=== PATIENT | female | born 1980 | race Caucasian/White ===

== ENCOUNTER 2019-06-23 13:59 | Emergency (ER) | payer MEDICAID, SELFPAY ==
[2019-06-23 14:00] VITALS: BP 123/88; PULSE 123; RESP 18; TEMP 36.9; O2SAT 96; BMI 37.4
--- NOTE | 2019-06-23 14:34 | ED.VIS.GEN ---
History of Present Illness <Akshat Montanez - Last Filed: 06/23/19 16:22> Onset: Weeks Narrative: Patient presents to the ED with right lower extremity pain for the last 2 weeks. She was seen at urgent care and referred to the ED. She denies any injury. She has been taking Aleve intermittently for pain. She has been ambulating with the assistance of a cane due to the pain. <BelenlucaShannan - Last Filed: 06/23/19 17:11> Chief Complaint: Lower Extremity Injury Past Medical History <Akshat Montanez - Last Filed: 06/23/19 16:22> Surgical History: - - Eye surgery Smoking Status: Never smoker - Family History Maternal Family History: Reports: No pertinent history <HuseyinShannan - Last Filed: 06/23/19 17:11> - Allergies and Home Meds Allergies/Adverse Reactions: Allergies No Known Allergies Allergy (Verified 06/23/19 14:00) Primary Care Physician: Emil Chaparro DO [Primary Care Provider] - Physical Exam Vital Signs/Narrative: Vital Signs Temp Pulse Resp BP Pulse Ox 06/23/19 14:00 98.4 F 123 H 18 123/88 H 96 <Akshat Montanez - Last Filed: 06/23/19 16:22> Vital Signs/Narrative: Vital Signs Temp Pulse Resp BP Pulse Ox 06/23/19 14:00 98.4 F 123 H 18 123/88 H 96 <Shannan Fontanez - Last Filed: 06/23/19 17:11> Diagnostic/Tx/Re-eval - Medical Decision Making Evaluate this patient with our physician sales service assistant. Atraumatic right lower leg and calf pain for 2 weeks. She denies any type of injury or trauma. Young female no acute distress. Vital signs stable afebrile. Right lower leg is unremarkable. She has full flexion-extension of her right hip, right knee, right ankle. Right foot neurovascularly intact. Normal DP pulse. Positive dorsi and plantar flexion. Calf is nontender without edema or cords. There is no redness or warmth. There is no swelling in the right lower extremity compared to the left. X-ray of the right knee and right lower leg were both unremarkable read by ourselves and also the radiologist. Impression: Acute right lower extremity atraumatic pain uncertain etiology <Akshat Montanez - Last Filed: 06/23/19 16:22> - Medical Decision Making Patient presents to the ED with atraumatic right lower extremity pain that is been ongoing for the last 2 weeks. She has no DVT risk factors. X-ray of the right knee and tib-fib are negative for acute findings. D-dimer is negative. Theresa with the patient that at this time it is unclear what is the etiology of her pain. She was advised to continue [id number] analgesics as well as rice therapy. She was advised to follow-up with PCP if symptoms persist or worsen. She was educated on signs/symptoms to return to the ED. She is provided discharge instructions. She is agreeable to plan. Impression: Acute right lower extremity atraumatic pain, unclear etiology Disposition: Home stable <Shannan Fontanez - Last Filed: 06/23/19 17:11> ED Disposition <Akshat Montanez - Last Filed: 06/23/19 16:22> <Shannan Fontanez - Last Filed: 06/23/19 17:11> - Plan for ED Patient: Disposition: Home or Assisted Living Diagnosis: Right leg pain Instructions: CONTUSION, Lower Extremity Referrals: Emil Chaparro DO [Primary Care Provider] -
--- NOTE | 2019-06-23 14:52 | RAD_ITS ---
STUDY: X-RAY - RIGHT TIBIA AND FIBULA REASON FOR EXAM: Female, 39 years old. Right lower leg pain TECHNIQUE: 2 view(s) of the tibia and fibula were obtained. COMPARISON: None. FINDINGS: Normal visualized tibia. Normal visualized fibula. The soft tissue structures are unremarkable. RAD/Tibia & Fibula 2 Views IMPRESSION: Normal x-ray examination of the tibia and fibula. Electronically Signed: Lefty Vick MD ([place]) at 15:10 EDT , Service support ,
--- NOTE | 2019-06-23 14:52 | RAD_ITS ---
STUDY: X-RAY - RIGHT KNEE REASON FOR EXAM: Female, 39 years old. Right knee pain without reported injury TECHNIQUE: 4 view(s) of the knee. COMPARISON: None. FINDINGS: Normal visualized distal femur. Normal visualized proximal tibia and fibula. Normal proximal tibiofibular articulation. Normal medial femorotibial compartment. Normal lateral femorotibial compartment. Normal patellofemoral articulation. There is no demonstrated joint effusion. The soft tissue structures are unremarkable. RAD/Knee 4 or More Views IMPRESSION: Normal x-ray examination of the knee. Electronically Signed: Lefty Vick MD ([place]) at 15:09 EDT , Service support ,
[2019-06-23 16:51] LABS: D-Dimer Quantitative (DVT/PE) < 0.27 FEU/ug/m (0.27-0.49)
[2019-06-23 16:56] VITALS: BP 141/93; RESP 18
[2019-06-23 17:11] VITALS: BP 133/89; PULSE 91; RESP 16; O2SAT 99
== END 2019-06-23 17:12 | disposition home or self-care (01) ==
PROVIDERS: Emergency Provider Physician Assistant; Family Provider Student in an Organized Health Care Education/Training Program; PCP Student in an Organized Health Care Education/Training Program
DX: M79.661 Pain in right lower leg (principal)
CPT/HCPCS: 73564; 73590; 85379; 99282